=== PATIENT | female | born 1985 | race African-American/Black ===

== ENCOUNTER 2020-02-29 10:48 | Inpatient (IN) ==
[2020-02-29] MEDS ORDERED: Buffered Lidocaine 1% SYRIN 1 ml INTRADERM ONE (11:57)
[2020-02-29] MEDS ORDERED: Lactated Ringers 1000 ml BAG 1,000 ML IV ONE ×2 (11:57→19:17)
[2020-02-29] MEDS ORDERED: Lactated Ringers 1000 ml BAG 1,000 ML IV SCH ×3 (12:00→20:00)
[2020-02-29 13:12] LABS: Hematocrit 35 % (35-47); Hemoglobin 12.2 g/dL (12.0-16.0); Mean Corpuscular HGB Conc 35 g/dL (31-36); Mean Corpuscular Hemoglobin 27 pg (27-31); Mean Corpuscular Volume 79 fL (80-97); Red Blood Count 4.48 10^6 /uL (3.70-4.87); Red Cell Distribution Width 16 % (10-15); White Blood Count 9.9 10^3/uL (3.5-10.8)
[2020-02-29 13:21] LABS: Albumin 3.4 g/dL (3.2-5.2); Albumin/Globulin Ratio 1.2 (1-3); BUN/Creatinine Ratio 9.4 (8-20); Calcium 9.1 mg/dL (8.6-10.3); EGFR African American 161.8 (>60); EGFR Non-African American 133.7 (>60); Globulin 2.9 g/dL (2-4); Potassium 3.5 mmol/L (3.5-5.0); Total Bilirubin 1.1 mg/dL (0.2-1.0); Total Protein 6.3 g/dL (6.4-8.9)
[2020-02-29 13:48] LABS: Urine Benzodiazepine Screen None Detected (None Detect); Urine Cannabinoids Screen None Detected (None Detect); Urine Opiates Screen None Detected (None Detect)
[2020-02-29 14:24] LABS: ABS Lymphocytes 1.6 10^3/ul (1.0-4.8); ABS Monocytes 1.1 10^3/ul (0-0.8); ABS Neutrophils 7.2 10^3/ul (1.5-7.7); Eosinophil % 0.1 %; Mean Platelet Volume 10.9 fL (7.4-10.4); Platelet Count 168 10^3/uL (150-450)
[2020-02-29] MEDS ORDERED: Oxytocin in LR 20 UNITS/1,000 ML BAG IVPB ONE (15:38)
[2020-02-29] MEDS ORDERED: Glycerin ADULT 2.4 gm SUPP PR PRN (15:52)
[2020-02-29] MEDS ORDERED: Lidocaine 1% VIAL 10 MG/ML VIAL ONE (16:18)
[2020-02-29] MEDS ORDERED: Lidocaine 2% JELLY 6 ML TOPICAL ONE (18:02)
[2020-02-29] MEDS: fentaNYL 100 mcg/2 ml 50 MCG/ML VIAL ONE ×3 (18:07→18:35)
[2020-02-29] MEDS ORDERED: fentaNYL 100 mcg/2 ml 50 MCG/ML VIAL ONE ×2 (18:26→18:31)
[2020-02-29] MEDS ORDERED: Midazolam 5 mg/5 ml VIAL 1 mg/ml 5 ml VIAL (5 mg) ONE (18:26)
[2020-02-29] MEDS ORDERED: Propofol 10 MG/ML 20 ML BTL ONE (18:26)
[2020-02-29] MEDS ORDERED: Morphine PF AMP (0.5MG/ML) 5 MG/10 ML AMP ONE (18:53)
[2020-02-29] MEDS: Oxytocin in LR 20 UNITS/1,000 ML BAG IVPB SCH ×2 (18:59→19:01)
[2020-02-29] MEDS ORDERED: Sodium Citrate/Citric Acid LIQ 15 ML UDC PO PRN (19:17)
[2020-02-29] MEDS ORDERED: Phenylephrine 40 mcg/mL 10mL (400mcg) SYRINGE IV PUSH PRN (19:17)
[2020-02-29] MEDS ORDERED: EPHEDrine (Pressors) 50 MG/ML VIAL IV PUSH PRN (19:17)
[2020-02-29 19:44] LABS: ABS Lymphocytes 0.5 10^3/ul (1.0-4.8); ABS Monocytes 1.2 10^3/ul (0-0.8); ABS Neutrophils 13.8 10^3/ul (1.5-7.7); Hematocrit 29 % (35-47); Hemoglobin 10.1 g/dL (12.0-16.0); Mean Corpuscular HGB Conc 35 g/dL (31-36); Mean Corpuscular Hemoglobin 27 pg (27-31); Mean Corpuscular Volume 79 fL (80-97); Platelet Count 160 10^3/uL (150-450); Red Blood Count 3.71 10^6 /uL (3.70-4.87); Red Cell Distribution Width 15 % (10-15); White Blood Count 15.5 10^3/uL (3.5-10.8)
[2020-02-29] MEDS ORDERED: ceFOXitin 2 GM IVPREMIX 2 GM/50 ML BAG IVPB ONE (20:00)
[2020-02-29 21:14] LABS: Platelet Count 163 10^3/ul (150-450)
[2020-02-29 21:21] LABS: Activated Partial Thrombo Time 29.9 seconds (26.0-38.0); INR 1.06 (0.82-1.09)
[2020-02-29 21:29] LABS: Schistocytes ABSENT
[2020-02-29] MEDS: Witch Hazel PAD JAR TOPICAL PRN (22:55)
[2020-02-29] MEDS: Dibucaine 1% OINT 28.35 GM TUBE PR PRN (22:55)
[2020-02-29] MEDS ORDERED: oxyCODONE/Acetamin 5/325 mg TAB PO PRN (23:36)
[2020-02-29] MEDS ORDERED: HYDROmorphone 1 MG/1 ML SYRINGE IV SLOW PU PRN (23:37)
[2020-02-29] MEDS ORDERED: Oxytocin in LR 20 UNITS/1,000 ML BAG IVPB SCH (23:58)
[2020-03-01 01:27] LABS: Hematocrit 30 % (35-47); Hemoglobin 10.5 g/dL (12.0-16.0); Mean Corpuscular HGB Conc 34 g/dL (31-36); Mean Corpuscular Hemoglobin 28 pg (27-31); Mean Corpuscular Volume 82 fL (80-97); Mean Platelet Volume 12.4 fL (7.4-10.4); Platelet Count 141 10^3/uL (150-450); Red Cell Distribution Width 16 % (10-15); White Blood Count 16.8 10^3/uL (3.5-10.8)
[2020-03-01 01:28] LABS: ABS Lymphocytes 1.6 10^3/ul (1.0-4.8); ABS Monocytes 1.9 10^3/ul (0-0.8); ABS Neutrophils 13.2 10^3/ul (1.5-7.7); Lymphocyte % 9.8 %
[2020-03-01 01:41] LABS: Platelet Count 141 10^3/ul (150-450)
[2020-03-01 01:52] LABS: Activated Partial Thrombo Time 33.4 seconds (26.0-38.0); Fibrinogen 354 mg/dL (110.8-404.3); INR 1.09 (0.82-1.09)
[2020-03-01 02:19] LABS: Schistocytes ABSENT
[2020-03-01 06:12] LABS: Hematocrit 27 % (35-47); Hemoglobin 9.4 g/dL (12.0-16.0); Mean Corpuscular HGB Conc 35 g/dL (31-36); Mean Corpuscular Hemoglobin 29 pg (27-31); Mean Corpuscular Volume 82 fL (80-97); Platelet Count 123 10^3/ul (150-450); Platelet Count 128 10^3/uL (150-450); Red Blood Count 3.31 10^6 /uL (3.70-4.87); Red Cell Distribution Width 15 % (10-15); White Blood Count 14.2 10^3/uL (3.5-10.8)
[2020-03-01 06:14] LABS: ABS Basophils 0.1 10^3/ul (0-0.2); ABS Lymphocytes 2.2 10^3/ul (1.0-4.8); ABS Monocytes 1.7 10^3/ul (0-0.8); ABS Neutrophils 10.2 10^3/ul (1.5-7.7); Lymphocyte % 15.8 %
[2020-03-01 06:46] LABS: Schistocytes ABSENT
[2020-03-01 06:47] LABS: Activated Partial Thrombo Time 31.7 seconds (26.0-38.0); Fibrinogen 378.4 mg/dL (110.8-404.3); INR 1.12 (0.82-1.09)
[2020-03-03 08:59] VITALS: BP 138/76
[2020-03-03] MEDS: Witch Hazel PAD JAR TOPICAL PRN (13:02)
[2020-03-03] MEDS: Dibucaine 1% OINT 28.35 GM TUBE PR PRN (13:02)
== END 2020-03-03 13:30 | disposition home or self-care (01) | DRG 560 ==
LOC: MCHOBOUT 10:48 → MCHOB 11:49
PROVIDERS: ADMIT Obstetrics & Gynecology; ATTEND Obstetrics & Gynecology